=== PATIENT | female | born 1945 | race Caucasian/White ===

== ENCOUNTER 2024-12-10 22:58 | Emergency (ER) | payer OTHER, SELFPAY ==
[2024-12-10 23:07] VITALS: BP 222/112
[2024-12-10 23:13] VITALS: BMI 27.9
[2024-12-10 23:36] VITALS: BP 198/88
[2024-12-10 23:58] LABS: % Basophils 0.8 % (0-2); % Eosinophils 3.1 % (0-6); % Immature Granulocytes 0.3 % (0-0.5); % Lymphocytes 35.3 % (20.5-51.1); % Neutrophils 52.5 % (42.2-75.2); Absolute Basophils 0.1 10^3/uL (0-0.2); Absolute Eosinophils 0.2 10^3/uL (0-0.7); Absolute Lymphocytes 2.7 10^3/uL (1.2-3.4); Absolute Monocytes 0.6 10^3/uL (0.1-0.6); Absolute Neutrophils 4.1 10^3/uL (1.4-6.5); Hemoglobin 12.7 g/dL (12.0-16.0); Mean Corp Hgb Conc. 33.4 g/dL (33.0-37.0); Mean Corpuscular Volume 89.8 fL (81.0-99.0); Mean Platelet Volume 10.4 fL (7.4-10.4); Nucleated Red Blood Cells % 0 %; Platelet Count 269 10^3/uL (130-400); Red Blood Cell Count 4.23 10^6/uL (4.20-5.40); Red Cell Dist. Width 13.2 % (11.5-14.5); White Blood Cell Count 7.7 10^3/uL (4.8-10.8)
[2024-12-11] VITALS: BP 185/92
[2024-12-11 00:11] LABS: ALT (SGPT) 17 U/L (0-35); AST (SGOT) 25 U/L (14-36); Albumin 4.3 g/dl (3.5-5.0); Alkaline Phosphatase 82 U/L (38-126); Blood Urea Nitrogen 28 mg/dl (7-17); Calcium 9.9 mg/dl (8.4-10.2); Carbon Dioxide 28 mmol/L (22-30); Chloride 101 mmol/L (98-107); Glucose 228 mg/dl (70-99); Potassium 4.4 mmol/L (3.5-5.1); Sodium 136 mmol/L (135-145); Total Bilirubin 0.5 mg/dl (0.2-1.3); Total Protein 7.2 g/dl (6.3-8.2); eGFR > 60.00
--- NOTE | 2024-12-11 00:12 | ED.GENMED ---
History of Present Illness
General
Chief Complaint: Blood Pressure Problem
Source: patient and family
Time Seen by Provider: 12/10/24 23:49
History of Present Illness
History of Present Illness:
This patient is a 79-year-old female, lives alone, who presents emergency department with elevated blood pressure. Patient has been treated for hypertension for many years, usually maintained on lisinopril. She has noted over the past week or so
that the blood pressure has been more poorly controlled with a systolic blood pressure in the 150s range. Her lisinopril was increased to 15 without relief. She saw her doctor today and she was instructed to change to losartan 50 mg. However, she
has not gotten that medication yet filled. This afternoon she checked her blood pressure and it became increasingly elevated, and tonight it was even more elevated which prompted her visit here. She took a total of 20 mg of lisinopril today.
Patient states that she has had urinary frequency that started today not associated with dysuria, hematuria, flank pain, fever, chills. She denies chest pain or pressure, palpitations, dyspnea, numbness, tingling, focal weakness. She did have a
mild headache earlier, now resolved. She denies diplopia or loss of vision. Patient states she feels 'fine'.
Past History
Past History
ED Past Medical History: HTN, Hypercholesterolemia and IDDM
ED Past Surgical History: Other (Cataract)
Social History
Tobacco: Former smoker
Alcohol: None
Drug: None
Living: alone
Employment: Employed
Phy Exam
Physical Exam
Physical Exam:
GENERAL: Alert , in no apparent distress
EYE: pupils equal and reactive, EOMI, no nystagmus
NECK: Supple, no significant adenopathy.
ENT: o/p clr, mmm.
CARDIAC: Regular rate and rhythm .
LUNGS: Clear breath sounds bilaterally, no acute respiratory distress, no wheezes/rales/rhonchi
ABDOMEN: Soft, without focal tenderness, no r/g, no cvat
NEUROLOGICAL: Alert and oriented, no focal neuro deficits, motor 5 out of 5, sensory intact, cranial nerves II through XII intact, [id number] normal
SKIN: Warm and dry, skin intact.
MUSCULOSKELETAL: No edema, well perfused.
PSYCH: Normal and appropriate interaction.
Course
Orders/Labs/Results
Orders:
Orders
12/10/24 23:13
Electrocardiogram (*1) Urgent
Reason for Study: Other
Other Reason for Exam: Respiratory Distress
Cardiac Monitoring- Treatment ONCE
EKG- Treatment ONCE
IV Insert/Care/Rem.- Treatment PRN
O2 Therapy [RESP] Urgent
Titrate/Wean O2 to maintain O2 sat greater than (%): 93
Special Instructions: TO MAINTAIN CONTINUOUS O2 SATS >/= 93%
Pulse Ox/cont/shift [RESP] Urgent
Quantity: 1
Special Instructions: continuous pulse ox
12/10/24 23:47
Complete Blood Count/With Diff Urgent
Comprehensive Metabolic Panel Urgent
NT-proBNP Urgent
Troponin I Urgent
12/11/24 00:00
CR Chest - 2 Views Urgent
Reason For Exam: respiratory distress
12/11/24 00:10
Metoprolol [Lopressor] 5 mg IV NOW STA
12/11/24 01:20
Urinalysis Reflex To Culture Urgent
Abnormal Lab Results
12/10/24
23:47
BUN 28 H mg/dl
(7-17)
Glucose 228 H mg/dl
(70-99)
12/10/24 23:47
12/10/24 23:47
Vital Signs
Initial and Last Documented VS:
Initial Vital Signs
Temp Pulse Resp BP Pulse Ox
97.1 F 92 20 222/112 98
12/10/24 23:07 12/10/24 23:07 12/10/24 23:07 12/10/24 23:07 12/10/24 23:07
Last Documented Vital Signs
Temp Pulse Resp BP Pulse Ox
97.1 F 68 16 185/92 97
12/10/24 23:07 12/11/24 00:30 12/11/24 00:30 12/11/24 00:18 12/11/24 00:15
*Critical Care Note
Total Time (30-74mins, 75-104mins- exclusive of procedures): Not Applicable
Update Note
Update Note:
Patient presents to the Emergency Department with ____elevated blood pressure
Number and Complexity of Problems Addressed at the Encounter
� Chronic conditions affecting care:
� Acute Exacerbation and/or Progression of Chronic Illness:
� Differential Diagnosis includes: But not limited to hypertensive emergency, hypertensive urgency, medication tolerance, etc. etc.
Amount and/or Complexity of Data to be Reviewed and Analyzed
� I performed an independent evaluation of and my interpretation is:
EKG: Read by me, normal sinus rhythm, normal rate, normal axis, no acute ischemia
CT:
Xrays:cxr read by me nad
Laboratory Studies: Generally unremarkable
Other:
� Review of other/old records reveals:
� Clinical information was obtained by an independent historian:
� Prescriptions/Medications Considered but not given:
� Further testing considered but not performed:
Risk of Complications and/or Morbidity or Mortality of Patient Management
� Social determinants of health affecting care:
� Discussion with other providers (PCP, Hospitalists, Consultants, etc):
� Escalation of care including admission/observation vs risk of discharge considered: 1:20 AM patient remains awake alert pleasant comfortable without symptoms. Workup generally unremarkable. Blood pressure now 150s over 90s.
Long discussion with patient regarding importance of checking her blood pressure and recording it at the same time each day, close discussion with her primary care doctor regarding changes in this, and initiating her new blood pressure medication
SOFIYA in the morning. Aware of importance of follow-up and reasons return to the ER.
ED Attending Note
-
Portions of this chart may have been created with voice recognition software.� Occasional wrong word or��sound alike� substitutions may have occurred due to the inherent limitations of voice recognition software.
Discharge Plan
Departure
Patient Disposition: Home (Routine Discharge)
Date of Disposition: 12/11/24
Time of Disposition: 01:21
Patient with high blood pressure during this ER visit?: Yes
Condition: Good
Discharge Problem:
Hypertension
Instructions: BLOOD PRESSURE
Referrals:
UNKNOWN - PT DOES,NOT KNOW [Family Provider] -
Activity Restrictions/Additional Instructions:
PLEASE FOLLOW-UP WITH YOUR DOCTOR THIS WEEK. PLEASE CONTACT YOUR DOCTOR OR RETURN TO THE EMERGENCY DEPARTMENT IMMEDIATELY IF YOU DEVELOP CHEST PAIN, SEVERE HEADACHE, VOMITING, SHORTNESS OF BREATH, DIFFICULTY URINATING, NUMBNESS, WEAKNESS, CHANGE IN
SPEECH, LOSS OF VISION, SUSTAINED ELEVATED BLOOD PRESSURE, OR OTHER WORRISOME FINDINGS
Interventions
Interventions:
*Risk Screen - Suicide Last Done: 12/10/24 23:07
*General Assessment Last Done: 12/10/24 23:07
*Neglect/Abuse Screening Last Done: 12/10/24 23:07
*ED- Fall Risk Assessment Last Done: 12/10/24 23:07
*ED COVID-19 Vaccine History Last Done: 12/10/24 23:07
ED- Cardiac Assessment Last Done: 12/10/24 23:13
ED- Neurological Assessment Last Done: 12/10/24 23:13
ED- Pulmonary Assessment Last Done: 12/10/24 23:13
Discharge Date and Time
Print Language: CITIZEN OF [place]
[2024-12-11] MEDS: LOPRESSOR 5 MG IV (00:18)
[2024-12-11 00:24] LABS: NT-proBNP 208 pg/ml; Troponin I < 0.012 ng/ml
== END 2024-12-11 01:44 | disposition home or self-care (01) ==
LOC: EMR 22:58
PROVIDERS: Emergency Medicine; EMERGENCY PHYSICIAN Emergency Medicine
DX: I10 Essential (primary) hypertension (principal); R03.0 Elevated blood-pressure reading, without diagnosis of hypertension; E11.9 Type 2 diabetes mellitus without complications; E78.00 Pure hypercholesterolemia, unspecified; Z79.899 Other long term (current) drug therapy; Z87.891 Personal history of nicotine dependence
CPT/HCPCS: 99283; 71046; 80053; 83880; 84484; 85025; 93005

== ENCOUNTER 2025-02-20 19:08 | Emergency (ER) | payer OTHER, SELFPAY ==
[2025-02-20 19:10] VITALS: BP 168/89
[2025-02-20 19:17] LABS: Glucose - Point of Care 388 mg/dl (70-99)
[2025-02-20] MEDS: LR 1000 IV (20:44)
[2025-02-20 20:56] LABS: % Basophils 0.3 % (0-2); % Eosinophils 0.2 % (0-6); % Immature Granulocytes 0.2 % (0-0.5); % Lymphocytes 15.2 % (20.5-51.1); % Monocytes 6.9 % (1.7-9.3); % Neutrophils 77.2 % (42.2-75.2); Absolute Lymphocytes 1.5 10^3/uL (1.2-3.4); Absolute Monocytes 0.7 10^3/uL (0.1-0.6); Absolute Neutrophils 7.8 10^3/uL (1.4-6.5); Hematocrit 33.3 % (37.0-47.0); Hemoglobin 11.7 g/dL (12.0-16.0); Mean Corp Hgb Conc. 35.1 g/dL (33.0-37.0); Mean Corpuscular Volume 88.3 fL (81.0-99.0); Mean Platelet Volume 10.5 fL (7.4-10.4); Nucleated Red Blood Cells % 0 %; Platelet Count 272 10^3/uL (130-400); Red Blood Cell Count 3.77 10^6/uL (4.20-5.40); Red Cell Dist. Width 13.1 % (11.5-14.5); Venous Blood Gas B.E. 0.5 mmol/L (-4 to +4); Venous Blood Gas HCO3 25.4 mmol/L (22-27); Venous Blood Gas O2 Sat % 90.8 %; Venous Blood Gas pCO2 41 mmHg (35-48); Venous Blood Gas pO2 59 mmHg (30-50); White Blood Cell Count 10.1 10^3/uL (4.8-10.8)
[2025-02-20 20:57] LABS: Urine Albumin 1+ (Neg - Trace); Urine Bilirubin Negative (Negative); Urine Character Clear (Clear); Urine Color Yellow; Urine Glucose 4+ (Negative); Urine Ketone Negative (Negative); Urine Leukocyte Negative (Negative); Urine Nitrite Negative (Negative); Urine Occult Blood Negative (Negative); Urine Urobilinogen Negative (Neg - 1+)
[2025-02-20 21:19] LABS: Urine Red Blood Cell 0-2 /HPF (0-2); Urine White Cell 0-2 /HPF (0-5)
[2025-02-20 21:24] VITALS: BP 159/75
[2025-02-20 21:26] LABS: ALT (SGPT) 20 U/L (0-35); AST (SGOT) 21 U/L (14-36); Albumin 4.1 g/dl (3.5-5.0); Alkaline Phosphatase 86 U/L (38-126); Blood Urea Nitrogen 43 mg/dl (7-17); Calcium 9.2 mg/dl (8.4-10.2); Carbon Dioxide 21 mmol/L (22-30); Chloride 103 mmol/L (98-107); Glucose 439 mg/dl (70-99); Potassium 5.2 mmol/L (3.5-5.1); Sodium 131 mmol/L (135-145); Total Bilirubin 0.5 mg/dl (0.2-1.3); Total Protein 6.5 g/dl (6.3-8.2); eGFR 57.31
--- NOTE | 2025-02-20 21:39 | ED.GENMED ---
History of Present Illness
General
Chief Complaint: Blood Sugar Problem
Time Seen by Provider: 02/20/25 20:19
History of Present Illness
History of Present Illness:
79-year-old female presents the emergency department for evaluation of elevated blood sugar readings. She had intra-articular Kenalog injections 2 days ago by orthopedics in both knees. She has been seeing blood sugar readings that are
undetectably high. Reports some polyuria but no polydipsia. Denies any fevers. Has increased her nighttime Lantus dosing as a result but still has not seen in glucose control
Past History
Past History
ED Past Medical History: HTN, Hypercholesterolemia and IDDM
ED Past Surgical History: Other (Cataract)
Social History
Tobacco: Former smoker
Alcohol: None
Drug: None
Living: alone
Employment: Employed
Review of Systems
Review of Systems
Allergies reviewed?: Yes
All Other Systems: ROS reviewed and negative except as documented in HPI and ROS
Phy Exam
Physical Exam
Physical Exam:
GEN: Well appearing, NAD, WDWN
HEENT: Oral mucosa moist, no scleral icterus
Cardiac: Regular rate
Lung: No respiratory distress, no tachypnea
MSK: No gross deformity or injuries
Skin: Good color, no pallor or jaundice, no rashes
Neuro: AO x3, moves all extremities freely
Psych: Calm, cooperative
Course
Orders/Labs/Results
Orders:
Orders
02/20/25 20:34
Lactated Ringers [Lr] 1,000 ml IV BOLUS
02/20/25 20:45
Acetone [B-Hydroxybutyrate] Urgent
Complete Blood Count/With Diff Urgent
Comprehensive Metabolic Panel Urgent
Venous Blood Gas Urgent
%Oxygen/Room Air: 97
02/20/25 20:49
Urinalysis Reflex To Culture Urgent
Date Specimen was Collected: 02/20/25
Time Specimen was Collected: 20:37
Urine Microscopic Reflex Cult Urgent
02/20/25 21:29
Insulin Aspart [NOVOLOG vial] 15 units SC NOW STA
Abnormal Lab Results
02/20/25 02/20/25 02/20/25
19:15 20:45 20:49
RBC 3.77 L 10^6/uL
(4.20-5.40)
Hgb 11.7 L g/dL
(12.0-16.0)
Hct 33.3 L %
(37.0-47.0)
MPV 10.5 H fL
(7.4-10.4)
Absolute Neuts (auto) 7.8 H 10^3/uL
(1.4-6.5)
Absolute Monos (auto) 0.7 H 10^3/uL
(0.1-0.6)
Neutrophils % 77.2 H %
(42.2-75.2)
Lymphocytes % 15.2 L %
(20.5-51.1)
VBG pO2 59 H mmHg
(30-50)
Sodium 131 L mmol/L
(135-145)
Potassium 5.2 H mmol/L
(3.5-5.1)
Carbon Dioxide 21 L mmol/L
(22-30)
BUN 43 H mg/dl
(7-17)
Glucose 439 H mg/dl
(70-99)
Urine Glucose 4+ A
(Negative)
Urine Albumin (Reflex) 1+ A
(Neg - Trace)
B-Hydroxybutyrate 1.33 H mmol/L
(0.02-0.27)
POC Glucose 388 H mg/dl
(70-99)
02/20/25 20:45
02/20/25 20:45
Vital Signs
Initial and Last Documented VS:
Initial Vital Signs
Temp Pulse Resp BP Pulse Ox
98.7 F 104 20 168/89 97
02/20/25 19:10 02/20/25 19:10 02/20/25 19:10 02/20/25 19:10 02/20/25 19:10
Last Documented Vital Signs
Temp Pulse Resp BP Pulse Ox
98.7 F 81 18 159/75 94
02/20/25 19:10 02/20/25 21:24 02/20/25 21:24 02/20/25 21:24 02/20/25 21:24
MDM/Problems Addressed
MDM/Problems Addressed:
Patient declined subcu insulin in the ED as she feels as though she can manage this adequately at home. Labs are not consistent with DKA, no T7 area. Recommend continued decrease of nighttime Lantus with appropriate adjustments of mealtime insulin
and recommend close primary care follow-up
*Critical Care Note
Total Time (30-74mins, 75-104mins- exclusive of procedures): Not Applicable
ED Attending Note
-
Portions of this chart may have been created with voice recognition software.� Occasional wrong word or��sound alike� substitutions may have occurred due to the inherent limitations of voice recognition software.
Discharge Plan
Departure
Patient Disposition: Home (Routine Discharge)
Date of Disposition: 02/20/25
Time of Disposition: 21:39
Patient with high blood pressure during this ER visit?: No
Discharge Problem:
Steroid-induced hyperglycemia
Instructions: High blood sugar in adults - ED discharge instructions
Referrals:
Syed Saunders DO [Family Provider, Family Practice]
Activity Restrictions/Additional Instructions:
Continue your 14 units of Lantus at nighttime, do not make any adjustments to your typical mealtime insulin dosing as you are adjusting your dosage based on your active blood sugar. If you begin to see frequent low periods return to your typical 12
units of Lantus at nighttime
Interventions
Interventions:
*Risk Screen - Suicide Last Done: 02/20/25 19:10
*General Assessment Last Done: 02/20/25 19:10
*Neglect/Abuse Screening Last Done: 02/20/25 19:10
*ED- Fall Risk Assessment Last Done: 02/20/25 21:25
*ED COVID-19 Vaccine History Last Done: 02/20/25 21:25
*Nursing Disposition Last Done: 02/20/25 21:56
ED- Neurological Assessment Last Done: 02/20/25 21:25
Discharge Date and Time
Discharge Date/Time: 02/20/25 21:57
Print Language: [place]
[2025-02-20 21:55] LABS: B-Hydroxybutyrate 1.33 mmol/L (0.02-0.27)
== END 2025-02-20 21:57 | disposition home or self-care (01) ==
LOC: EMR 19:08
PROVIDERS: Physician Assistant; EMERGENCY PHYSICIAN Student in an Organized Health Care Education/Training Program; FAMILY PHYSICIAN Family Medicine
DX: R73.9 Hyperglycemia, unspecified (principal); R35.89 Other polyuria; T38.0X5A Adverse effect of glucocorticoids and synthetic analogues, initial encounter; I10 Essential (primary) hypertension; E11.65 Type 2 diabetes mellitus with hyperglycemia; E78.00 Pure hypercholesterolemia, unspecified; E11.36 Type 2 diabetes mellitus with diabetic cataract; Z87.891 Personal history of nicotine dependence
CPT/HCPCS: 99284; 96360; 80053; 81003; 81015; 82010; 82805; 82962; 85025

== ENCOUNTER 2025-08-05 07:50 | Emergency (ER) | payer OTHER, SELFPAY ==
[2025-08-05] VITALS (8 sets, daily range): BP systolic 164–188; BP diastolic 86–104; BMI 25.9
--- NOTE | 2025-08-05 08:31 | ED.GENMED ---
History of Present Illness
<Lynnette Lemus MD, Resident - Last Filed: 08/05/25 14:37>
General
Chief Complaint: Back Pain
Source: patient and family
Time Seen by Provider: 08/05/25 08:06
History of Present Illness
History of Present Illness:
79-year-old female with past medical history of diabetes, hypertension, hyperlipidemia and chronic back issues presents to the ER with severe back pain. She has had back pain for the past 2 years and sees a depilatory painter however she
had a fall last week on 07/29/2025 which resulted in worsening of back symptoms as well as significant right knee pain. She got an MRI of August 01, 2020 provide which revealed mild acute/subacute superior endplate compression fracture of the L3
vertebral body multilevel degenerative changes with spinal canal stenosis and for mild narrowing. She also has bilateral knee MRI results pending. Yesterday evening, she noticed increased numbness and tingling shooting down her right leg. This
morning her knees buckled underneath her and her daughter brought her to the ER for further evaluation. She has been taking large amounts of ibuprofen and Tylenol every 2 hours with no relief. Her daughter states she was unable to dress this this
morning. There is significant pain with flexion and extension. The only position she is comfortable with laying flat in bed. She denies any loss of her bowel or bladder movements. She denies any fevers or numbness within the inner parts of her
thighs.
Past History
<Lynnette Lemus MD, Resident - Last Filed: 08/05/25 14:37>
Past History
ED Past Medical History: HTN, Hypercholesterolemia and IDDM
ED Past Surgical History: Other (Cataract, gallbladder, tubal ligation )
Social History
Tobacco: Former smoker
Alcohol: None
Drug: None
Living: alone
Employment: Employed
Family History
Family History: Other (Mom - rheumatic heart disease, HTN. Dad - of SBO complication. Siblings - DM2)
Review of Systems
<Lynnette Lemus MD, Resident - Last Filed: 08/05/25 14:37>
Review of Systems
Allergies reviewed?: Yes
Constitutional: Reports no symptoms
EENT: Reports no symptoms
Respiratory: Reports no symptoms
Cardiac: Reports no symptoms
ABD/GI: Reports no symptoms
: Reports no symptoms
Musculoskeletal: Reports back pain
Skin: Reports no symptoms
Neurological: Reports no symptoms
Endocrine: Reports no symptoms
Hematologic/Lymphatic: Reports no symptoms
Psychiatric: Reports no symptoms
Phy Exam
<Lynnette Lemus MD, Resident - Last Filed: 08/05/25 14:37>
Physical Exam
Physical Exam:
General: Well-appearing, laying flat in bed trying to stay still
Head: Atraumatic
Cardiac: Regular S1, S2, no murmur
Respiratory: Clear breath sounds bilaterally
Abdomen: Slight discomfort in bilateral lower quadrants, soft, nondistended, normal bowel sounds
Neurological: Cranial nerves II through XII intact, bilateral 5 out of 5 muscle strength in upper extremity however strength in lower extremities limited due to pain. Proprioception and sensation intact.
Back: Pain reproducible in back with leg raise and bilateral legs. Tenderness with palpation to midline lumbar spine. Pain with movement of back in all directions.
Extremities: Tenderness with palpation in right knee. No peripheral edema
Course
<Lynnette Lemus MD, Resident - Last Filed: 08/05/25 14:37>
Orders/Labs/Results
Orders:
Orders
08/05/25 08:48
Tramadol HCl [Ultram] 75 mg PO NOW STA
08/05/25 09:00
CBC/No Diff [Complete Blood Count/No Diff] Urgent
CMP [Comprehensive Metabolic Panel] Urgent
Abnormal Lab Results
08/05/25
09:00
RBC 3.92 L 10^6/uL
(4.20-5.40)
Hgb 11.8 L g/dL
(12.0-16.0)
Hct 34.8 L %
(37.0-47.0)
Glucose 132 H mg/dl
(70-99)
08/05/25 09:00
08/05/25 09:00
Vital Signs
Initial and Last Documented VS:
Initial Vital Signs
Temp Pulse Resp BP Pulse Ox
97.5 F 87 18 182/100 99
08/05/25 07:53 08/05/25 07:53 08/05/25 07:53 08/05/25 07:53 08/05/25 07:53
Last Documented Vital Signs
Temp Pulse Resp BP Pulse Ox
98.6 F 82 20 164/94 99
08/05/25 09:00 08/05/25 11:48 08/05/25 11:48 08/05/25 11:48 08/05/25 11:48
<Paige Owens MD - Last Filed: 08/05/25 09:38>
Orders/Labs/Results
Orders:
Orders
08/05/25 08:48
Tramadol HCl [Ultram] 75 mg PO NOW STA
08/05/25 09:00
CBC/No Diff [Complete Blood Count/No Diff] Urgent
CMP [Comprehensive Metabolic Panel] Urgent
Abnormal Lab Results
08/05/25
09:00
RBC 3.92 L 10^6/uL
(4.20-5.40)
Hgb 11.8 L g/dL
(12.0-16.0)
Hct 34.8 L %
(37.0-47.0)
Glucose 132 H mg/dl
(70-99)
08/05/25 09:00
08/05/25 09:00
Vital Signs
Initial and Last Documented VS:
Initial Vital Signs
Temp Pulse Resp BP Pulse Ox
97.5 F 87 18 182/100 99
08/05/25 07:53 08/05/25 07:53 08/05/25 07:53 08/05/25 07:53 08/05/25 07:53
Last Documented Vital Signs
Temp Pulse Resp BP Pulse Ox
98.6 F 82 20 164/94 99
08/05/25 09:00 08/05/25 11:48 08/05/25 11:48 08/05/25 11:48 08/05/25 11:48
<Lynnette Lemus MD, Resident - Last Filed: 08/05/25 14:37>
MDM/Problems Addressed
Differential Diagnosis Includes:
Spinal stenosis, herniated disc, compression fracture, cauda equina, musculoskeletal pain, kidney stone,
MDM/Problems Addressed:
79-year-old female presents today for uncontrolled pain due to L3 compression fracture and to level spinal stenosis.
Due to recent MRI 03/31/2025, will defer imaging at this time. Patient states that she carries the discs with her. Presentation and physical exam not consistent with cauda equina. Will get CBC and CMP to evaluate kidney function. Will trial
tramadol 75 for pain control. If pain significantly improves, will consider discharge with instructions to follow up with neurosurgery. If not, may consider admission for intractable pain with ambulatory disfunction.
09:30
Checked in after about 30 min of tramadol 75 and patient able to sit up and walk around. Still in pain but very manageable. Patient and daughter want to recheck in an hour to see how she does when the medication starts to wear off. CBC and CMP
unremarkable. Noted slight anemia that may require additional outpatient work up. Renal function is good with Cr 0.8.
10:46
Checked in again and the patient is still able to walk around and sit up. She is slow to do so, but able to move independently and pain is controlled. Will discharge with script for tramadol with instructions to follow up with her pain management
doctor and/or neurosurgery for further evaluation.
Chronic conditions affecting care: DM and Other (Degenerative disc disease. )
<Lynnette Lemus MD, Resident - Last Filed: 08/05/25 14:37>
*Pulse Oximetry
SaO2: 99
Oxygen Mode of Delivery: Room air
Patient hypoxic: no
*Critical Care Note
Total Time (30-74mins, 75-104mins- exclusive of procedures): Not Applicable
Data Reviewed
Review of Other/Old Records Reveals: Labs (02/20/25 Hg 11.7) and Radiology Studies (Chest x-ray 12/11/24 No acute cardiopulmonary process )
Source: patient and family
ED Attending Note
<Lynnette Lemus MD, Resident - Last Filed: 08/05/25 14:37>
-
Portions of this chart may have been created with voice recognition software.� Occasional wrong word or��sound alike� substitutions may have occurred due to the inherent limitations of voice recognition software.
<Paige Owens MD - Last Filed: 08/05/25 09:38>
ED Attending Note
Patient seen and examined by attending physician: Yes
I performed a history and physical exam of patient and discussed management with resident, I reviewed resident's note and agree with documented findings and plan of care.: Yes
ED Attending Note:
Patient has reproducible mid lumbar back pain and appears uncomfortable while sitting up and moving. Patient is heart sounds regular lungs are clear
Discharge Plan
Departure
Patient Disposition: Home (Routine Discharge)
Date of Disposition: 08/05/25
Time of Disposition: 11:01
Patient with high blood pressure during this ER visit?: Yes
Condition: Good
Covid-19: Not Applicable
Discharge Problem:
Compression fracture of L3 vertebra, Spinal stenosis
Instructions: Lumbar spinal stenosis, Vertebral compression fracture
Prescriptions:
New
tramadol 50 mg tablet
50 mg PO TIDPRN PRN (Reason: Pain) Qty: 14 0RF
No Action
lisinopril 10 mg Tablet
15 mg PO DAILY
Referrals:
Presley Taylor MD [Active, Orthopedics]
Gordo Kat DO [Non-Admitting Privileges, Orthopedics]
Syed Saunders DO [Family Provider, Family Practice]
Activity Restrictions/Additional Instructions:
Please follow up with your pain management and/or neurosurgery for further evaluation and pain management.
Please continue to take ibuprofen 200-400mg every 4-6 hours and tylenol 1000mg three times a day with a maximum dose of 4,000mg along with the tramadol 50mg three time a day.
Interventions
Interventions:
*Risk Screen - Suicide Last Done: 08/05/25 07:53
*General Assessment Last Done: 08/05/25 07:53
*Neglect/Abuse Screening Last Done: 08/05/25 07:53
*ED- Fall Risk Assessment Last Done: 08/05/25 07:53
*ED COVID-19 Vaccine History Last Done: 08/05/25 07:53
*ED Influenza Vaccine History Last Done: 08/05/25 07:53
*Nursing Disposition Last Done: 08/05/25 11:49
ED-Musculoskeletal Assessment Last Done: 08/05/25 09:00
Discharge Date and Time
Discharge Date/Time: 08/05/25 12:04
Print Language: [place]
[2025-08-05] MEDS: ULTRAM 75 MG PO (08:57)
[2025-08-05 09:12] LABS: Hematocrit 34.8 % (37.0-47.0); Hemoglobin 11.8 g/dL (12.0-16.0); Mean Corp Hgb Conc. 33.9 g/dL (33.0-37.0); Mean Corpuscular Volume 88.8 fL (81.0-99.0); Platelet Count 254 10^3/uL (130-400); Red Cell Dist. Width 12.6 % (11.5-14.5)
[2025-08-05 09:29] LABS: ALT (SGPT) 13 U/L (0-35); AST (SGOT) 20 U/L (14-36); Albumin 4.1 g/dl (3.5-5.0); Alkaline Phosphatase 77 U/L (38-126); Blood Urea Nitrogen 15 mg/dl (7-17); Calcium 9.4 mg/dl (8.4-10.2); Carbon Dioxide 29 mmol/L (22-30); Chloride 104 mmol/L (98-107); Estimated Creatinine Clearance 58 ml/min; Glucose 132 mg/dl (70-99); Potassium 4.3 mmol/L (3.5-5.1); Sodium 137 mmol/L (135-145); Total Protein 7.3 g/dl (6.3-8.2); eGFR > 60.00
== END 2025-08-05 12:04 | disposition home or self-care (01) ==
LOC: EMR 07:50
PROVIDERS: EMERGENCY PHYSICIAN Emergency Medicine; FAMILY PHYSICIAN Family Medicine
DX: M48.061 Spinal stenosis, lumbar region without neurogenic claudication (principal); M48.56XA Collapsed vertebra, not elsewhere classified, lumbar region, initial encounter for fracture; M54.9 Dorsalgia, unspecified; I10 Essential (primary) hypertension; E78.00 Pure hypercholesterolemia, unspecified; E11.9 Type 2 diabetes mellitus without complications; Z82.49 Family history of ischemic heart disease and other diseases of the circulatory system; Z83.3 Family history of diabetes mellitus; Z87.891 Personal history of nicotine dependence; Z98.51 Tubal ligation status
CPT/HCPCS: 99283; 80053; 85027